=== PATIENT | male | born 1980 | race Asian ===

== ENCOUNTER 2018-05-18 02:01 | Emergency (ER) | payer OTHER ==
[~2018-05-18] VITALS: Ht 172.7 cm; Wt 60.1 kg
[2018-05-18] MEDS ORDERED: LIDOcaine 1% w/epiNEPHrine 1:200,000 30ml vial IJ ONE (03:30)
[2018-05-18] MEDS ORDERED: TETanus/Pertussis (Acell)/Diphther VAC/PF (Tdap-Adult) 0.5ml syringe IM ONE (03:30)
[2018-05-18] MEDS ORDERED: LIDOcaine 1.5% w/epinephrine 1:200,000 5ml ampul IJ ONE (03:30)
[2018-05-18 04:43] VITALS: BP 115/59
[2018-05-18] MEDS ORDERED: HYDR-4383 PO (04:48)
[2018-05-18] MEDS ORDERED: NAPR-56 PO (04:48)
[2018-05-18] MEDS ORDERED: CEPH250T PO (04:49)
== END 2018-05-18 05:17 | disposition home or self-care (01) ==
LOC: ER 02:02
DX: S71.111A Laceration without foreign body, right thigh, initial encounter (principal); Z79.2 Long term (current) use of antibiotics; Z79.899 Other long term (current) drug therapy; W25.XXXA Contact with sharp glass, initial encounter; Y93.89 Activity, other specified; Y92.89 Other specified places as the place of occurrence of the external cause; Y99.8 Other external cause status
CPT/HCPCS: 12004; 90471; 90715; 99284; J3490